=== PATIENT | female | born 1975 ===

== ENCOUNTER 2016-11-14 22:56 | Emergency (ER) | payer MEDICAID ==
[2016-11-14 23:40] VITALS: BP 128/68; PULSE 77; RESP 17; TEMP 98.6; O2SAT 99
[2016-11-15] MEDS ORDERED: Sodium Chloride 0.9% 1,000 ML IV STA (00:06)
--- NOTE | 2016-11-15 00:09 | ED PDOC ---
HPI: Abdomen Time Seen by Provider: 11/14/16 23:43 Chief Complaint (Nursing): Abdominal Pain Chief Complaint (Provider): abdominal pain History Per: Patient History/Exam Limitations: no limitations Onset/Duration Of Symptoms: Days (2) Current Symptoms Are (Timing): Still Present Location Of Pain/Discomfort: RUQ Associated Symptoms: Nausea, Vomiting Additional History Per: Patient Additional Complaint(s): 41 y/o female presents for eval of right upper abdominal pain x 2 days. Associated nausea/vomiting. Denies fever, chest pain, shortness of breath, palpitations, changes in bowel movements, dysuria, hematuria. admits to similar symptoms in past and was told it was a "bacteria infection" as per son. Past Medical History Reviewed: Historical Data, Nursing Documentation, Vital Signs Vital Signs: Last Vital Signs Temp 98.6 F 11/14/16 23:37 Pulse 77 11/14/16 23:37 Resp 17 11/14/16 23:37 BP 128/68 11/14/16 23:37 Pulse Ox 99 11/15/16 02:19 - Medical History PMH: No Chronic Diseases - Surgical History Surgical History: - Family History Family History: States: Unknown Family Hx - Home Medications Home Medications: Ambulatory Orders Medication Instructions Recorded Ondansetron ODT [Zofran ODT] 4 mg PO Q8 PRN #10 odt 11/15/16 - Allergies Allergies/Adverse Reactions: Allergies Allergy/AdvReac Type Severity Reaction Status Date / Time No Known Allergies Allergy Verified 10/29/16 14:34 Review of Systems ROS Statement: Except As Marked, All Systems Reviewed And Found Negative Gastrointestinal: Positive for: Nausea, Vomiting, Abdominal Pain Physical Exam - Reviewed Nursing Documentation Reviewed: Yes Vital Signs Reviewed: Yes - Physical Exam Appears: Positive for: Well, Non-toxic, No Acute Distress Head Exam: Positive for: ATRAUMATIC, NORMAL INSPECTION, NORMOCEPHALIC Skin: Positive for: Normal Color Eye Exam: Positive for: Normal appearance ENT: Positive for: Normal ENT Inspection Cardiovascular/Chest: Positive for: Regular Rate, Rhythm Respiratory: Positive for: Normal Breath Sounds (RUQ) Gastrointestinal/Abdominal: Positive for: Bowel Sounds, Soft, Tenderness (RUQ, epigastric (mild)) Back: Positive for: Normal Inspection Extremity: Positive for: Normal ROM Neurologic/Psych: Positive for: Alert, Oriented - Laboratory Results Result Diagrams: 05/10/17 00:56 11/15/16 00:56 - ECG O2 Sat by Pulse Oximetry: 99 - Progress ED Course And Treament: EXAM: CT Abdomen and Pelvis With Intravenous Contrast CLINICAL HISTORY: 41 years old, female; Pain; Abdominal pain; Localized; Right upper quadrant (ruq ); Prior surgery; Surgery date: 6+ months; Surgery type: ; Additional info: Right upper abd pain TECHNIQUE: Axial computed tomography images of the abdomen and pelvis with intravenous contrast. This CT exam was performed using one or more of the following dose reduction techniques : automated exposure control, adjustment of the mA and/or kV according to patient size, and/ or use of iterative reconstruction technique. Coronal and sagittal reformatted images were created and reviewed. CONTRAST: 90 mL of [id number] administered intravenously. COMPARISON: CT ABD 02/16/2014 6:35:19 PM FINDINGS: Lower thorax: Minimal peripheral atelectasis/scarring. ABDOMEN: Liver: Unremarkable. No mass. Gallbladder and bile ducts: No calcified stones. No ductal dilation. Pancreas: No ductal dilation. No mass. Spleen: No splenomegaly. Adrenals: No mass. Kidneys and ureters: No mass. No hydronephrosis. Stomach and bowel: No definite mural thickening. No obstruction. Appendix: Normal caliber. No inflammation. PELVIS: Bladder: Unremarkable. Reproductive: Enlarged, lobulated uterus with several masses. ABDOMEN and PELVIS: Intraperitoneal space: No significant fluid collection. No free air. Bones/joints: No acute fracture. Soft tissues: Unremarkable. Vasculature: Minimal atherosclerotic disease. No abdominal aortic aneurysm. Lymph nodes: No pathologically enlarged lymph nodes. IMPRESSION: 1. No definite acute intraabdominal abnormality. 2. Probable fibroid uterus. 3. Incidental/non-acute findings are described above. On re-eval, patient states she is feeling better; tolerating PO Patient educated on findings, discharged with rx Zofran. Advised follow up PMD 2-3 days. Follow up [employer] for fibroid incidental findings REturn to ED for worsening/concerning symptoms. Disposition - Clinical Impression Clinical Impression: Abdominal pain, Uterine fibroid Counseled Patient/Family Regarding: Studies Performed, Diagnosis, Need For Followup, Rx Given - Disposition Referrals: Frankie Vera MD [Primary Care Provider] - Disposition: Routine/Home Disposition Time: 03:08 Condition: IMPROVED Prescriptions: Ondansetron ODT [Zofran ODT] 4 mg PO Q8 PRN #10 odt PRN Reason: Nausea/Vomiting Instructions: Abdominal Pain (ED), Uterine Fibroids (ED) Print Language: SLOVAK
[2016-11-15 00:59] LABS: BASO # 0.1 K/uL (0.0-0.2); BASO % 0.7 % (0.0-2.0); EOS % 0.5 % (0.0-4.0); HEMATOCRIT 40.8 % (34.0-47.0); LYMPH # 1.8 K/uL (1.0-4.3); LYMPH % 22.1 % (20.0-40.0); MEAN CELL VOLUME 85.1 fl (81.0-99.0); MEAN CORPUSCULAR HEMOGLOBIN 27.8 pg (27.0-31.0); MEAN CORPUSCULAR HGB CONC 32.7 g/dL (33.0-37.0); MEAN PLATELET VOLUME 10.1 fl (7.2-11.7); MONO # 0.3 K/uL (0.0-0.8); MONO % 3.5 % (0.0-10.0); NEUT # 5.8 K/uL (1.8-7.0); NEUT % 73.2 % (50.0-75.0); RED CELL DISTRIBUTION WIDTH 16.2 % (11.5-14.5); WHITE BLOOD COUNT 7.9 K/uL (4.8-10.8)
[2016-11-15 01:19] LABS: ALB/GLOB RATIO 1.3 (1.0-2.1); ALKALINE PHOSPHATASE 71 U/L (38-126); ALT/SGPT 30 U/L (9-52); AST/SGOT 39 U/L (14-36); BILIRUBIN,TOTAL 0.9 mg/dl (0.2-1.3); BLOOD UREA NITROGEN 16 mg/dl (7-17); CALCIUM 9.9 mg/dL (8.4-10.2); CARBON DIOXIDE 26 mmol/L (22-30); CHLORIDE 102 mmol/L (98-107); GFR AFRICAN-AMERICAN > 60; GLUCOSE,RANDOM 120 mg/dL (65-105); LIPASE 192 U/L (23-300); POTASSIUM 4.5 MMOL/L (3.6-5.0); SODIUM 139 mmol/l (132-148); TOTAL PROTEIN 8.5 G/DL (6.3-8.2)
[2016-11-15] MEDS ORDERED: Sodium Chloride 0.9% 50 ML IV ONE (01:24)
[2016-11-15] MEDS ORDERED: Iohexol 300 100 ML IJ ONE (01:24)
[2016-11-15 01:36] LABS: RBC URINE 5 /hpf (0-3); URINE BILIRUBIN NEGATIVE (NEGATIVE); URINE BLOOD NEGATIVE (NEGATIVE); URINE COLOR YELLOW (YELLOW); URINE GLUCOSE (UA) NEG (Normal); URINE KETONE NEGATIVE (NEGATIVE); URINE LEUKOCYTE ESTERASE NEG Leu/uL (Negative); URINE PROTEIN NEGATIVE (NEGATIVE); URINE UROBILINOGEN 0.2-1.0 mg/dL (0.2-1.0); WBC URINE 3 /hpf (0-5)
--- NOTE | 2016-11-15 02:01 | CT ---
EXAM: CT Abdomen and Pelvis With Intravenous Contrast CLINICAL HISTORY: 41 years old, female; Pain; Abdominal pain; Localized; Right upper quadrant (ruq); Prior surgery; Surgery date: 6+ months; Surgery type: ; Additional info: Right upper abd pain TECHNIQUE: Axial computed tomography images of the abdomen and pelvis with intravenous contrast. This CT exam was performed using one or more of the following dose reduction techniques: automated exposure control, adjustment of the mA and/or kV according to patient size, and/or use of iterative reconstruction technique. Coronal and sagittal reformatted images were created and reviewed. CONTRAST: 90 mL of administered intravenously. COMPARISON: CT ABD 02/16/2014 6:35:19 PM FINDINGS: Lower thorax: Minimal peripheral atelectasis/scarring. ABDOMEN: Liver: Unremarkable. No mass. Gallbladder and bile ducts: No calcified stones. No ductal dilation. Pancreas: No ductal dilation. No mass. Spleen: No splenomegaly. Adrenals: No mass. Kidneys and ureters: No mass. No hydronephrosis. Stomach and bowel: No definite mural thickening. No obstruction. Appendix: Normal caliber. No inflammation. PELVIS: Bladder: Unremarkable. Reproductive: Enlarged, lobulated uterus with several masses. ABDOMEN and PELVIS: Intraperitoneal space: No significant fluid collection. No free air. Bones/joints: No acute fracture. Soft tissues: Unremarkable. Vasculature: Minimal atherosclerotic disease. No abdominal aortic aneurysm. Lymph nodes: No pathologically enlarged lymph nodes. IMPRESSION: 1. No definite acute intraabdominal abnormality. 2. Probable fibroid uterus. 3. Incidental/non-acute findings are described above.
== END 2016-11-15 03:25 | disposition home or self-care (01) ==
LOC: H.ER 22:56
DX: R10.11 Right upper quadrant pain (principal); D25.9 Leiomyoma of uterus, unspecified

== ENCOUNTER 2016-11-15 20:12 | Emergency (ER) | payer MEDICAID ==
[2016-11-15 20:37] VITALS: BP 140/76; PULSE 73; RESP 20; TEMP 99.2; O2SAT 100
[2016-11-15] MEDS ORDERED: Sodium Chloride 0.9% 1,000 ML IV STA (20:50)
--- NOTE | 2016-11-15 20:53 | ED PDOC ---
HPI: Abdomen Time Seen by Provider: 11/15/16 20:38 Chief Complaint (Nursing): Abdominal Pain Chief Complaint (Provider): abdominal pain History Per: Patient History/Exam Limitations: no limitations Onset/Duration Of Symptoms: Days (2) Current Symptoms Are (Timing): Still Present Location Of Pain/Discomfort: RUQ, Epigastric Additional History Per: Patient, Family Additional Complaint(s): 41 y/o female presents with persistent upper abdominal pain, vomiting. Patient seen in ED last night for same, had normal CT scan, was sent home with Zofran rx but patient states it is not helping. Denies fever, chest pain, shortness of breath, changes in bowel movements, recent travel. Past Medical History Reviewed: Historical Data, Nursing Documentation, Vital Signs Vital Signs: Last Vital Signs Temp 99.2 F 11/15/16 20:34 Pulse 73 11/15/16 20:34 Resp 20 11/15/16 20:34 BP 140/76 11/15/16 20:34 Pulse Ox 100 11/15/16 22:43 - Medical History PMH: No Chronic Diseases - Surgical History Surgical History: - Family History Family History: States: Unknown Family Hx - Living Arrangements Living Arrangements: With Family - Home Medications Home Medications: Ambulatory Orders Medication Instructions Recorded Ondansetron ODT [Zofran ODT] 4 mg PO Q8 PRN #10 odt 11/15/16 Esomeprazole Magnesium [Nexium] 40 mg PO DAILY #30 capsule. 11/16/16 - Allergies Allergies/Adverse Reactions: Allergies Allergy/AdvReac Type Severity Reaction Status Date / Time No Known Allergies Allergy Verified 11/15/16 23:35 Review of Systems ROS Statement: Except As Marked, All Systems Reviewed And Found Negative Gastrointestinal: Positive for: Nausea, Vomiting, Abdominal Pain Physical Exam - Reviewed Nursing Documentation Reviewed: Yes Vital Signs Reviewed: Yes - Physical Exam Appears: Positive for: Well, Non-toxic, Uncomfortable Head Exam: Positive for: ATRAUMATIC, NORMAL INSPECTION, NORMOCEPHALIC Skin: Positive for: Normal Color Eye Exam: Positive for: Normal appearance ENT: Positive for: Normal ENT Inspection Cardiovascular/Chest: Positive for: Regular Rate, Rhythm Respiratory: Positive for: Normal Breath Sounds Gastrointestinal/Abdominal: Positive for: Bowel Sounds, Soft, Tenderness ( epigastric, RUQ). Negative for: Distended, Guarding, Rebound Back: Positive for: Normal Inspection Extremity: Positive for: Normal ROM Neurologic/Psych: Positive for: Alert, Oriented - Laboratory Results Result Diagrams: 11/15/16 21:38 11/15/16 21:38 - ECG ECG: Positive for: Viewed By Me (reviewed by ED attending) ECG Rhythm: Positive for: Sinus Rhythm O2 Sat by Pulse Oximetry: 100 - Progress ED Course And Treament: labs, urine, IV fluids, IV zofran, IV pepcid, IV toradol EXAM: US Abdomen Limited, Right Upper Quadrant CLINICAL HISTORY: 41 years old, female; Pain; Abdominal pain; Epigastric; Additional info: Abd pain, vomiting TECHNIQUE: Real-time ultrasound of the right upper quadrant with image documentation. COMPARISON: CT - ABD PELVIS IV CONTRAST ONLY 11/15/2016 1:36:16 AM FINDINGS: Liver: Normal echogenicity. No mass. No intrahepatic bile duct dilatation. Gallbladder: No gallstones. No wall thickening. No pericholecystic fluid. No sonographic Arriola's sign. Common bile duct: No dilatation. No stones. Pancreas: Unremarkable as visualized. Right kidney: Normal echogenicity. No hydronephrosis. IMPRESSION: 1. No acute findings. 2. Non-acute findings are described above. Patient given IV benadryl, IV zofran for returning nausea 3:00 Patient states she is feeling better; tolerated PO. Patient has follow up appt with PMD today at 2:00. Patient/son comfortable with discharge and will follow up at scheduled appt. Rx Nexium provided. Return to ED for worsening/concerning symptoms. Disposition - Clinical Impression Clinical Impression: Abdominal pain - Patient ED Disposition Is Patient to be Admitted: No Counseled Patient/Family Regarding: Studies Performed, Diagnosis, Need For Followup, Rx Given - Disposition Disposition: Routine/Home Disposition Time: 03:18 Condition: IMPROVED Prescriptions: Esomeprazole Magnesium [Nexium] 40 mg PO DAILY #30 capsule.dr Instructions: Abdominal Pain (ED) Print Language: POLISH
[2016-11-15 21:42] LABS: BASO % 0.7 % (0.0-2.0); HEMATOCRIT 41.5 % (34.0-47.0); LYMPH # 1.4 K/uL (1.0-4.3); LYMPH % 19.7 % (20.0-40.0); MEAN PLATELET VOLUME 9.8 fl (7.2-11.7); MONO # 0.1 K/uL (0.0-0.8); MONO % 1.8 % (0.0-10.0); NEUT # 5.4 K/uL (1.8-7.0); NEUT % 77.8 % (50.0-75.0); NRBC % 0.1 % (0.0-0.0)
[2016-11-15 21:52] LABS: ALB/GLOB RATIO 1.4 (1.0-2.1); ALKALINE PHOSPHATASE 85 U/L (38-126); ALT/SGPT 27 U/L (9-52); AST/SGOT 31 U/L (14-36); BILIRUBIN,TOTAL 0.6 mg/dl (0.2-1.3); BLOOD UREA NITROGEN 15 mg/dl (7-17); CALCIUM 9.7 mg/dL (8.4-10.2); CARBON DIOXIDE 25 mmol/L (22-30); CHLORIDE 102 mmol/L (98-107); GFR AFRICAN-AMERICAN > 60; GLUCOSE,RANDOM 127 mg/dL (65-105); LIPASE 111 U/L (23-300); POTASSIUM 3.7 MMOL/L (3.6-5.0); SODIUM 140 mmol/l (132-148); TOTAL PROTEIN 8.3 G/DL (6.3-8.2)
--- NOTE | 2016-11-15 22:36 | US ---
EXAM: US Abdomen Limited, Right Upper Quadrant CLINICAL HISTORY: 41 years old, female; Pain; Abdominal pain; Epigastric; Additional info: Abd pain, vomiting TECHNIQUE: Real-time ultrasound of the right upper quadrant with image documentation. COMPARISON: CT - ABD PELVIS IV CONTRAST ONLY 11/15/2016 1:36:16 AM FINDINGS: Liver: Normal echogenicity. No mass. No intrahepatic bile duct dilatation. Gallbladder: No gallstones. No wall thickening. No pericholecystic fluid. No sonographic Arriola's sign. Common bile duct: No dilatation. No stones. Pancreas: Unremarkable as visualized. Right kidney: Normal echogenicity. No hydronephrosis. IMPRESSION: 1.No acute findings. 2.Non-acute findings are described above.
[2016-11-15] MEDS ORDERED: DiphenhydrAMINE 50 mg/ml Inj IV ONE (23:31)
[2016-11-15] MEDS ORDERED: DiphenhydrAMINE 50 mg/ml Inj IVP STA (23:42)
[2016-11-15] MEDS ORDERED: Promethazine 25MG/50ML NS IVPB ONE (23:45)
--- NOTE | 2016-11-16 10:07 | CARD ---
APPROVED REPORT EKG Measurement Heart [id number] <Conclusion> Normal sinus rhythm Possible septal infarct, age undetermined Abnormal ECG
== END 2016-11-16 03:33 | disposition home or self-care (01) ==
LOC: H.ER 20:12
DX: R10.13 Epigastric pain (principal); R11.2 Nausea with vomiting, unspecified; R94.31 Abnormal electrocardiogram [ECG] [EKG]